=== PATIENT | male | born 1960 | race Asian ===

== ENCOUNTER 2021-12-13 23:11 | Inpatient (IN) | payer MEDICAID ==
[~2021-12-13] VITALS: Ht 180.3 cm; Wt 82.0 kg
[2021-12-13] MEDS ORDERED: MORPHINE SULFATE 4 MG/ML CPJ (NOT FOR IM USE) IV STA (23:58)
[2021-12-13] MEDS ORDERED: ONDANSETRON HCL 4MG/2ML INJ IV STA (23:58)
[2021-12-14] MEDS ORDERED: SODIUM CHLORIDE 0.9% 1,000 ML IV ONE
[2021-12-14 00:55] LABS: BASOPHILS % 0.5 % (0.0-2.0); EOSINOPHILS % 0.6 % (0.0-5.0); HEMATOCRIT. 41.7 % (42.0-52.0); HEMOGLOBIN. 13.8 g/dL (14.0-18.0); LYMPHOCYTES % 18.4 % (20.0-50.0); MEAN CORPUSCULAR VOLUME 84.6 fL (80.0-94.0); MEAN PLATELET VOLUME 7.7 fl (7.4-10.4); MONOCYTES % 4.3 % (2.0-8.0); NEUTROPHILS % 76.2 % (40.0-76.0); PLATELET 261 x1000/uL (130-400); RED BLOOD CELL COUNT 4.94 mill/uL (4.7-6.1)
[2021-12-14] MEDS ORDERED: PIPERACILLIN/TAZ 3.375G PREMIX 50 ML IV ONE (01:00)
[2021-12-14 01:09] LABS: CHLORIDE 102 mEq/L (98-107)
[2021-12-14 01:18] LABS: CLARITY URINE CLEAR (CLEAR); COLOR URINE YELLOW (YELLOW); KETONES URINE NEGATIVE (NEGATIVE); LEUKOCYTE ESTERASE URINE NEGATIVE (NEGATIVE); NITRITE URINE NEGATIVE (NEGATIVE); OCCULT BLOOD URINE NEGATIVE (NEGATIVE); PH URINE 5.5 (4.5-8.0); PROTEIN URINE NEGATIVE (NEGATIVE); UROBILINOGEN URINE 0.2 E.U./dL (0.2-1.0)
[2021-12-14 03:05] LABS: PARTIAL THROMBOPLASTIN TIME 29.3 sec (23.4-31.0); PROTHROMBIN TIME 10.3 sec (9.6-11.0)
[2021-12-14] MEDS ORDERED: MORPHINE SULFATE 4 MG/ML CPJ (NOT FOR IM USE) IV ONE (03:45)
[2021-12-14 06:00] VITALS: BP 150/76
[2021-12-14] MEDS ORDERED: SKIN ADHESIVE 0.7 GM EA TOP ONE (07:13)
[2021-12-14] MEDS ORDERED: BUPIVACAINE HCL/PF 0.5% (5MG/ML) 10ML ONE (07:13)
[2021-12-14] MEDS ORDERED: PROPOFOL 200MG/20ML VIAL IV ONE (07:31)
[2021-12-14] MEDS ORDERED: FENTANYL CITRATE/PF 50MCG/ML 2ML VIAL ONE (07:32)
[2021-12-14] MEDS ORDERED: MIDAZOLAM HCL 2 MG/2 ML VIAL ONE (07:32)
[2021-12-14] MEDS ORDERED: ROCURONIUM BROMIDE 10MG/ML VIAL 5ML IV ONE (07:32)
[2021-12-14] MEDS ORDERED: MEPERIDINE HCL/PF 25MG/ML CPJ IV PRN (08:15)
[2021-12-14] MEDS ORDERED: HYDROMORPHONE HCL/PF 2MG/ML CPJ IV PRN (08:15)
[2021-12-14] MEDS ORDERED: ONDANSETRON HCL 4MG/2ML INJ IV PRN (08:15)
[2021-12-14] MEDS ORDERED: LIDOCAINE HCL 2% JELLY 5ML ONE (08:15)
[2021-12-14] MEDS ORDERED: DEXAMETHASONE 4MG/ML 1ML VIAL ONE (08:15)
[2021-12-14] MEDS ORDERED: KETOROLAC 30MG/ML VIAL ONE (08:15)
[2021-12-14] MEDS ORDERED: METOCLOPRAMIDE HCL 10MG/2ML VIAL ONE (08:15)
[2021-12-14] MEDS ORDERED: LIDOCAINE HCL 1% 20ML VIAL (Pyxis) INJ ONE (08:15)
[2021-12-14] MEDS ORDERED: SODIUM CHLORIDE 0.9% 1,000 ML IV SCH (08:51)
[2021-12-14] MEDS ORDERED: HYDROCODONE/ACETAMINOPHEN 5/325MG TABLET PO PRN (09:30)
[2021-12-14] MEDS ORDERED: NALOXONE HCL 0.4MG/ML VIAL IV PRN (10:15)
== END 2021-12-14 10:38 | disposition home or self-care (01) | DRG 234 ==
LOC: ER 23:11 → MICUSO 12-14 01:54
PROVIDERS: ADMIT Internal Medicine; ATTEND Internal Medicine
PROC: 0DTJ4ZZ Resection of Appendix, Percutaneous Endoscopic Approach (ICD-10-PCS; principal; 2021-12-14)
DX: K35.80 Unspecified acute appendicitis (principal); E11.9 Type 2 diabetes mellitus without complications; I10 Essential (primary) hypertension; Z20.822 Contact with and (suspected) exposure to COVID-19
CPT/HCPCS: 36415; 71045; 74176; 80053; 81003; 85025; 86850; 86870; 86900; 87426; 88304; 93005; 99285; J1100; J1885; J2250; J2270; J2405; J2543; J2704; J2765; J3010; J3490; J7030